=== PATIENT | male | born 1975 | race Hispanic/Latino ===

== ENCOUNTER 2024-10-31 12:48 | Emergency (ER) | payer OTHER, SELFPAY ==
[~2024-10-31] VITALS: Ht 175.3 cm; Wt 111.1 kg
[2024-10-31 14:01] LABS: IMMATURE GRANULOCYTE ABSOLUTE 0.10 K/uL (0-1); NUCLEATED RED BLOOD CELLS 0.0 % (0.0-0.19); PLATELET COUNT (AUTO) 180 K/uL (130-400); RED BLOOD CELL COUNT(AUTO) 5.14 MIL/uL (4.50-6.20); RED CELL DISTRIBUTION WIDTH 12.3 % (11.0-15.5); WHITE BLOOD COUNT (AUTO) 11.6 K/uL (4.8-10.8)
[2024-10-31 14:02] LABS: APPEARANCE,URINE CLEAR (CLEAR); GLUCOSE, URINE (UA) >=1000 mg/dL (NEGATIVE); LEUKOCYTE ESTERASE ,URINE NEGATIVE Leu/uL (NEGATIVE); NITRATE,URINE NEGATIVE (NEGATIVE); OCCULT BLOOD,URINE SMALL (NEGATIVE); SQUAMOUS EPITHELIAL CELL,UR RARE /HPF (0-2)
[2024-10-31 14:15] LABS: INR 1.0 (0.85-1.15)
[2024-10-31 14:16] LABS: CREATININE 0.7 mg/dL (0.5-1.3); GLOMERULAR FILTR. RATE CALC 112.0 mL/min (>90); GLUCOSE,RANDOM 324.0 mg/dL (70-105); SODIUM SERUM 133.0 mmol/L (136-145); UREA NITROGEN, BLOOD 11.0 mg/dL (7-18)
[2024-10-31] MEDS: 0.9%NACL 1000ML 1,000 ML IV SCH (14:49)
[2024-10-31] MEDS: PoTASSium chloRIDE 20MEQ ER 20 MEQ ERTAB PO ONE ×2 (14:51→15:00)
--- NOTE | 2024-10-31 15:56 | HMCIMG ---
EXAM: CT Abdomen and Pelvis Without IV contrast CLINICAL HISTORY: Hematuria TECHNIQUE: Axial computed tomography images of the abdomen and pelvis without intravenous contrast. CONTRAST: No IV contrast. COMPARISON: None provided. FINDINGS: LUNG BASES: Few atelectatic bands noted in bilateral lower lobes. No pleural effusions are seen. LIVER: 22 cm enlarged in size with diffuse hypoattenuation suggestive of fatty changes. GALLBLADDER AND BILE DUCTS: The gallbladder appears within normal limits. No radioopaque gallstones are seen. No biliary ductal dilatation is evident. PANCREAS: Unremarkable. SPLEEN: 13 cm enlarged in size. ADRENAL GLANDS: Unremarkable. KIDNEYS, URETERS, AND BLADDER: The kidneys appear within normal limits. There is no hydronephrosis or hydroureter. No urinary calculi are seen. Bilateral kidney shows perinephric fat stranding with thickening of anterior pararenal fascia, and minimal fat stranding is noted along the bilateral ureter in its entire course. The possibility of infective/inflammatory etiology. STOMACH AND BOWEL: Unremarkable appearance of the stomach and bowel. No evidence of bowel obstruction. No evidence suggesting enteritis or colitis. Multiple diverticuli are noted along the descending and sigmoid colon. APPENDIX: Normal appendix. PERITONEUM: No free fluid. No free air. LYMPH NODES: No lymphadenopathy is evident. REPRODUCTIVE: Unremarkable as visualized. VASCULATURE: No evidence of abdominal aortic aneurysm. Atherosclerotic changes noted in aorta. BONES: No aggressive appearing osseous lesion. No acute osseous pathology evident. IMPRESSION: 1. Bilateral perinephric fat stranding with thickening of anterior pararenal fascia and minimal periureteral fat stranding, suggesting possible urinary tract infection 2. No urinary calculi. No hydronephrosis. 3. No bowel obstruction or inflammation. Diverticulosis. Normal appendix. 4. Hepatosplenomegaly with fatty infiltration of the liver. /[employer]
[2024-10-31] MEDS: 0.9%NACL 1000ML 1,000 ML IV STA (16:27)
[2024-10-31] MEDS ORDERED: KETO10TA2 PO (17:16)
[2024-10-31] MEDS ORDERED: CEPH500B PO (17:16)
--- NOTE | 2024-10-31 17:16 | ERN ---
General Chief Complaint: Blood in Urine: Stated Complaint: BLOOD IN URINE, KIDNEY STONE Time Seen by MD: 13:39 History of Present Illness Initial Comments 48 y/o male came in for blood in urine which has been going on for the past few days. Pt denies fever and chills. Pt has been having some flank pain. Pt states that he has history of kidney stones. Pt otherwise has no concerns. Allergies: Coded Allergies: No Known Drug Allergies (Unverified Allergy, Unknown, 10/31/24) Past Medical History Past Medical History: Diabetes-Type II, Kidney Stone Past Surgical History: None ROS Dictation Hematuria Physical Exam General Appearance: (+) no apparent distress Neck: (+) normal inspection Respiratory: (+) chest non-tender, (+) lungs clear Heart: (+) regular, (+) no gallop Gastrointestinal: (+) soft, (+) non-tender Results Laboratory and Microbiology Lab and Micro Result Laboratory Tests Test 10/31/24 13:46 10/31/24 13:54 10/31/24 16:53 Urine Color LIGHT-YELLOW (YELLOW) Urine Appearance CLEAR (CLEAR) Urine pH 6.0 (5.0-8.0) Urine Specific [place] 1.027 (1.001-1.031) Urine Protein 30 mg/dL (NEGATIVE) H Urine Glucose (UA) >=1000 mg/dL (NEGATIVE) H Urine Ketones 20 mg/dL (NEGATIVE) H Urine Occult Blood SMALL (NEGATIVE) H Urine Nitrate NEGATIVE (NEGATIVE) Urine Bilirubin NEGATIVE mg/dL (NEGATIVE) Urine Urobilinogen 2.0 mg/dL (0.2-1.0) H Urine Leukocyte Esterase NEGATIVE [place]/uL Urine RBC 2-5 /HPF (0-1) H Urine WBC 6-10 /HPF (0-1) H Urine Squamous Epithelial Cells RARE /HPF (0-2) Urine Bacteria None /HPF (None Seen) White Blood Count 11.6 K/uL (4.8-10.8) H Red Blood Count 5.14 MIL/uL (4.50-6.20) Hemoglobin 15.2 g/dL (14.0-18.0) Hematocrit 43.1 % (42-54) Mean Corpuscular Volume 83.9 fL (79-99) Mean Corpuscular Hemoglobin 29.6 pg (27.0-33.0) Mean Corpuscular Hemoglobin Concent 35.3 g/dL (32.0-36.0) Red Cell Distribution Width 12.3 % (11.0-15.5) Platelet Count 180 K/uL (130-400) Mean Platelet Volume 10.0 fL (7.5-10.5) Immature Granulocyte % (Auto) 0.9 % (0-1) Neutrophils (%) (Auto) 80.5 % (40.0-77.0) H Lymphocytes (%) (Auto) 12.9 % (21.0-51.0) L Monocytes (%) (Auto) 5.3 % (3.0-13.0) Eosinophils (%) (Auto) 0.1 % (0.0-8.0) Basophils (%) (Auto) 0.3 % (0.0-5.0) Neutrophils # (Auto) 9.3 K/uL (1.8-7.7) H Lymphocytes # (Auto) 1.5 K/uL (1.0-4.8) Monocytes # (Auto) 0.6 K/uL (0.1-1.0) Eosinophils # (Auto) 0.01 K/uL (0.00-0.70) Basophils # (Auto) 0.04 K/uL (0.00-0.20) Absolute Immature Granulocyte (auto 0.10 K/uL (0-1) Nucleated Red Blood Cells 0.0 % (0.0-0.19) Prothrombin Time 10.6 SEC (9.6-11.6) Prothromb Time International Ratio 1.00 (0.85-1.15) Activated Partial Thromboplast Time 28.2 SEC (26.3-35.5) Sodium Level 133 mmol/L (136-145) L Potassium Level 3.0 mmol/L (3.5-5.1) *L 3.2 mmol/L (3.5-5.1) L Chloride Level 94 mmol/L (101-111) L Carbon Dioxide Level 30 mmol/L (21-32) Blood Urea Nitrogen 11 mg/dL (7-18) Creatinine 0.7 mg/dL (0.5-1.3) Glomerular Filtration Rate Calc 112 mL/min (>90) Random Glucose 324 mg/dL (70-105) H Total Calcium 9.0 mg/dL (8.5-10.1) MDM Pt will be discharge to follow up with primary care physician. ED Course Orders Procedure Category Date Status Time Cbc With Differential LAB 10/31/24 Complete 13:40 Basic Metabolic Panel LAB 10/31/24 Complete 13:40 Urinalysis LAB 10/31/24 Complete W/Microscopic 13:40 Pt And Ptt LAB 10/31/24 Complete 13:40 Ct Abdomen/Pelvis W/O CT 10/31/24 Resulted Contrast 13:40 Culture Urine JUAN ALBERTO 10/31/24 In Process 14:02 0.9%Nacl 1000ml (Ns PHA 10/31/24 In Process 1000ml) 15:00 Ketorolac PHA 10/31/24 Complete Tromethamine 30mg/Ml 15:00 Potassium Chloride PHA 10/31/24 Complete 20meq Er (K-Dur/Klor- 15:00 Ketorolac PHA 10/31/24 Complete Tromethamine 30mg/Ml 14:45 Potassium Chloride PHA 10/31/24 Complete 20meq Er (K-Dur/Klor- 14:45 Potassium Chloride PHA 10/31/24 In Process 20meq Er (K-Dur/Klor- 21:00 Ceftriaxone 1g Vial PHA 10/31/24 Complete (Rocephine 1g Inj) 16:00 Potassium LAB 10/31/24 Complete 16:10 0.9%Nacl 1000ml (Ns PHA 10/31/24 Complete 1000ml) 16:09 Current Medications Medications (Trade) Dose Ordered Sig/[place] Route PRN Reason Start Time Stop Time Status Last Admin Dose Admin Ceftriaxone Sodium (ROCEphine 1G INJ) 1 gm ONCE ONCE IVPB 10/31/24 16:00 10/31/24 16:02 DC 10/31/24 16:17 Ketorolac Tromethamine (toRADol) 30 mg ONCE ONCE IVP 10/31/24 15:00 10/31/24 15:01 DC 10/31/24 14:50 Ketorolac Tromethamine (toRADol) 30 mg STK-MED ONCE .ROUTE 10/31/24 14:45 10/31/24 14:49 DC Potassium Chloride (K-Dur/Klor-Con 20meq) 20 meq ONCE ONCE PO 10/31/24 21:00 10/31/24 21:01 Potassium Chloride (K-Dur/Klor-Con 20meq) 20 meq STK-MED ONCE PO 10/31/24 14:45 10/31/24 14:49 DC Potassium Chloride (K-Dur/Klor-Con 20meq) 40 meq ONCE ONCE PO 10/31/24 15:00 10/31/24 15:01 DC 10/31/24 15:00 Sodium Chloride 1,000 ml @ 0 mls/hr Q0M IV 10/31/24 15:00 11/30/24 14:59 10/31/24 16:17 Sodium Chloride 1,000 ml @ 0 mls/hr Q0M STAT IV 10/31/24 16:09 10/31/24 16:14 DC 10/31/24 16:27 Vital Signs Date Time Temp Pulse Resp B/P (MAP) Pulse Ox O2 Delivery O2 Flow Rate FiO2 10/31/24 16:15 99.1 91 18 140/78 96 Room Air* 0 21 10/31/24 15:01 96 18 126/68 98 Room Air* 0 21 10/31/24 12:52 100.2 107 14 158/81 96 Room Air 0 DX & DISP Disposition: Discharge Departure Impression: Primary Impression: Dehydration Additional Impression: Hematuria Condition: Stable Scripts Ketorolac Tromethamine (Ketorolac Tromethamine) 10 Mg Tablet 1 TAB PO BID PRN for pain for 5 Days, #10 TAB 0 Refills Prov: ROOPA LOMBARDO MD 10/31/24 Cephalexin Monohydrate (Keflex) 500 Mg Cap 500 MG PO BID for 5 Days, #10 CAP Prov: ROOPA LOMBARDO MD 10/31/24 ROOPA LOMBARDO MD Oct 31, 2024 17:16
[2024-10-31 17:23] VITALS: BP 136/75; PULSE 91; RESP 18; TEMP 99.1; O2SAT 96
[2024-10-31] MEDS ORDERED: PoTASSium chloRIDE 20MEQ ER 20 MEQ ERTAB PO ONE (21:00)
== END 2024-10-31 17:25 | disposition home or self-care (01) ==
LOC: EDH 12:48
DX: E86.0 Dehydration (principal); R31.9 Hematuria, unspecified; E11.9 Type 2 diabetes mellitus without complications
CPT/HCPCS: 99285; 74176; 96374; 96361; 96375; 84132; 80048; 85025; 85610; 85730; 87086; 81001; 36415; J1885; J7030; J0696